=== PATIENT | male | born 2000 | race Caucasian/White ===

== ENCOUNTER 2022-01-28 14:54 | Emergency (ER) | payer OTHER ==
--- NOTE | 2022-01-28 15:24 | XRAY ---
Indication: Pain following punching injury. Comparison: None 2 view right wrist demonstrates normal bones, articulation, and soft tissues for patient's age.
--- NOTE | 2022-01-28 15:25 | XRAY ---
Indication: Pain following punching injury. Comparison: None 2 view right hand demonstrates normal bones, articulation, and soft tissues for patient's age.
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
[2022-01-28] MEDS ORDERED: TORAdol 30 mg Injection IM ONE (16:11)
[2022-01-28] MEDS ORDERED: TORAdol 30 mg Injection ONE (16:37)
[2022-01-28 16:49] VITALS: BP 132/80; PULSE 64; O2SAT 98
== END 2022-01-28 16:45 | disposition home or self-care (01) ==
LOC: ED 14:54
DX: S60.041A Contusion of right ring finger without damage to nail, initial encounter (principal); S60.051A Contusion of right little finger without damage to nail, initial encounter; W22.01XA Walked into wall, initial encounter; M79.641 Pain in right hand; Z72.0 Tobacco use
CPT/HCPCS: 73100; 73120; 96372; 99284; J1885

== ENCOUNTER 2022-07-01 10:20 | Emergency (ER) | payer OTHER ==
[2022-07-01 10:58] VITALS: PULSE 96; O2SAT 99
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
[2022-07-01 11:33] VITALS: BP 135/85
--- NOTE | 2022-07-01 11:36 | XRAY ---
Indication: Pain. Comparison: January 28, 2022 3 view right wrist again demonstrates normal bones, articulation, and soft tissues for patient's age.
== END 2022-07-01 11:43 | disposition home or self-care (01) ==
LOC: ED 10:20
DX: S66.911A Strain of unspecified muscle, fascia and tendon at wrist and hand level, right hand, initial encounter (principal); X50.0XXA Overexertion from strenuous movement or load, initial encounter; Y99.0 Civilian activity done for income or pay; M25.531 Pain in right wrist; Z72.0 Tobacco use
CPT/HCPCS: 73110; 99282; L3908